=== PATIENT | male | born 1975 | race Caucasian/White ===

== ENCOUNTER 2018-08-03 10:28 | Emergency (ER) | payer MEDICAID ==
[~2018-08-03] VITALS: Ht 157.5 cm; Wt 84.5 kg
[2018-08-03 10:43] VITALS: BP 129/70
--- NOTE | 2018-08-03 11:00 | NUR ---
PT AMBULATED TO BED 4
--- NOTE | 2018-08-03 11:01 | NUR ---
ACCOMPANIED BY C/O RIGHT ARM PAIN RADIATING RIGHT SHOULDER X 8 DAYS DURING WORK OVER REACHED WHEN BEING PASSED HEAVY OBJECT--- DENIES MECHANICAL FALL UNABLE TO SLEEP DUE TO CONSTANT PAIN---- STATES UNABLE TO LIFT ARM STRAIGHT OUT IN FRONT OF HIM SHOULDER LEVEL; +2 RADIAL PULSE <3 SEC CAP REFILL HX--DENIES RX---CEE PIERRE
--- NOTE | 2018-08-03 11:29 | NUR ---
Patient being evaluated by DR CHENG at bedside.
[2018-08-03] MEDS ORDERED: KETOROLAC 60 MG/2 ML VIAL IM ONE (11:35)
[2018-08-03 12:04] VITALS: BP 120/67
--- NOTE | 2018-08-03 12:04 | NUR ---
Patient discharged with v/s stable. Written and verbal after care instructions given and explained. Patient alert, oriented and verbalized understanding of instructions. Ambulatory with steady gait. All questions addressed prior to discharge. ID band removed. Patient advised to follow up with PMD. Rx of MOTRIN & TRAMADOL given. Patient educated on indication of medication including possible reaction and side effects. Opportunity to ask questions provided and answered.
== END 2018-08-03 12:04 | disposition home or self-care (01) ==
LOC: MED 10:28
DX: M25.511 Pain in right shoulder (principal)
CPT/HCPCS: 73030; 96372; 99283; J1885; Q0092